=== PATIENT | female | born 1985 | race Caucasian/White ===

== ENCOUNTER 2017-11-30 21:04 | Emergency (ER) | payer MEDICAID ==
[2017-11-30] MEDS: DEXAMETHASONE 10 MG/ML 1 ML INJ IM (22:23)
[2017-11-30] MEDS: FAMOTIDINE 20 MG TAB PO (22:23)
== END 2017-11-30 22:33 | disposition home or self-care (01) ==
LOC: FTE 21:04
DX: O99.711 Diseases of the skin and subcutaneous tissue complicating pregnancy, first trimester (principal); L50.9 Urticaria, unspecified; Z3A.09 9 weeks gestation of pregnancy
CPT/HCPCS: 96372; 99284-25

== ENCOUNTER 2017-12-01 23:19 | Emergency (ER) | payer MEDICAID ==
[2017-12-02] MEDS: DIPHENHYDRAMINE 50 MG CAP PO (01:50)
== END 2017-12-02 02:40 | disposition home or self-care (01) ==
LOC: FTE 23:19
DX: L50.9 Urticaria, unspecified (principal)
CPT/HCPCS: 99282-25; Z7502

== ENCOUNTER 2017-12-27 00:05 | Emergency (ER) | payer MEDICAID ==
[2017-12-27] MEDS: ACETAMINOPHEN 325 MG TAB PO (04:02)
[2017-12-27] MEDS: ONDANSETRON 4 MG INJ IV (04:02)
[2017-12-27] MEDS: SOD CHLORIDE 0.9% 1,000 ML IV (04:04)
[2017-12-27 04:28] LABS: ADD UMIC YES; UR ASCORBIC ACID NEGATIVE (NEGATIVE); UR BACTERIA FEW /HPF (NONE SEEN); UR BILIRUBIN (Dip) NEGATIVE (NEGATIVE); UR BLOOD (Dip) NEGATIVE (NEGATIVE); UR CLARITY SLIGHTLY CLOUDY (CLEAR); UR COLOR YELLOW (YELLOW); UR GLUCOSE (Dip) NEGATIVE (NEGATIVE); UR KETONES (Dip) 2+ mg/dL (NEGATIVE); UR LEUKOCYTE ESTERASE (Dip) NEGATIVE Leu/ul (NEGATIVE); UR MUCUS MODERATE /HPF (NONE SEEN); UR NITRITE (Dip) NEGATIVE (NEGATIVE); UR RBC 2 /HPF (0-5); UR SQUAMOUS EPITHELIAL CELL FEW /HPF (FEW); UR TOTAL PROTEIN (Dip) 1+ mg/dl (NEGATIVE); UR UROBILINOGEN (Dip) 1+ mg/dL (NEGATIVE); UR WBC 1 /HPF (0-5)
== END 2017-12-27 05:06 | disposition home or self-care (01) ==
LOC: FTE 00:05
DX: O21.0 Mild hyperemesis gravidarum (principal); Z3A.12 12 weeks gestation of pregnancy
CPT/HCPCS: 81001; 96374; 99284-25